=== PATIENT | female | born 2005 | race Caucasian/White ===

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

== ENCOUNTER 2024-02-07 12:38 | Emergency (ER) | payer MEDICAID, SELFPAY ==
[2024-02-07 12:42] VITALS: BP 110/71; PULSE 78; RESP 16; TEMP 37.2; O2SAT 96
[2024-02-07 13:18] LABS: Abs Immature Grans 0.01 10^3/uL (0.0-0.06); Absolute Basophil Count 0.03 10^3/uL (0.0-0.2); Absolute Eosinophil Count 0.11 10^3/uL (0.0-0.7); Absolute Lymphocyte Count 1.66 10^3/uL (1.2-3.4); Absolute Neutrophil Count 3.59 10^3/uL (1.2-6.7); Basophils % 0.5 %; Eosinophils % 1.9 %; HCT 46.1 % (36.0-46.0); Immature Grans % 0.2 %; Lymphocytes % 28.1 %; MCH 27.8 pg (27.0-33.0); MCHC 32.5 % (32.0-36.0); MCV 86 fL (80-95); Monocytes % 8.5 %; Neutrophils % 60.8 %; Platelet Count 206 10^3/uL (130-400); RBC 5.39 10^6/uL (3.93-5.22); RDW 12.2 % (11.7-14.6); RDW-SD 38.1 fL
[2024-02-07 13:45] LABS: ALT 19 U/L (14-59); AST 12 U/L (15-37); Albumin 4.4 g/dL (3.4-5.0); Alkaline Phosphatase 76 U/L (46-116); Anion Gap 8.7 mmol/L (3-11); BUN 10 mg/dL (7-18); Bilirubin, Total 1.44 mg/dL (0.2-1.0); CO2 29.3 mmol/L (21.0-32.0); CREATININE 0.8 mg/dL (0.55-1.02); Calcium 9.5 mg/dL (8.5-10.1); Chloride 105 mmol/L (98-107); Estimated GFR 108.78 (mL/min/1.73m2); Glucose 92 mg/dL (74-106); Potassium 3.7 mmol/L (3.5-5.1); Sodium 143 mmol/L (136-145); TSH (W/Ref FT4) 3.11 uIU/mL (0.52-4.13); Total Protein 8.2 g/dL (6.4-8.2)
[2024-02-07 13:50] LABS: Acetaminophen < 2 ug/mL (10-30); Salicylate < 2.8 mg/dL (<2.8)
[2024-02-07 13:51] LABS: ETHANOL BLOOD < 3.0 mg/dL (<10)
--- NOTE | 2024-02-07 13:54 | W.ED.GENAD ---
Discharge Plan Discharge Details Chief Complaint: PsychEval Clinical Impression: Feeling suicidal Primary Care Provider: Unknown,Unknown ED Provider: Angelo Dobbins Home Meds and New Rx's Prescriptions: No Action levonorgestrel-ethinyl estrad [Aviane] 0.1-20 mg-mcg tablet 1 tab PO DAILY Qty: 84 4RF Rx Instructions: take one pill every day cetirizine 10 mg tablet See Rx Instructions .ROUTE .COMPLEX Qty: 60 2RF Dose Instruction: TAKE ONE TABLET BY MOUTH AT BEDTIME NEEDED FOR SEASONAL ALLERGY SYMPTOMS Rx Instructions: TAKE ONE TABLET BY MOUTH AT BEDTIME NEEDED FOR SEASONAL ALLERGY SYMPTOMS HPI General Date/Time Provider Initiated Documentation: 02/07/24 12:43. HPI Narrative: This is a pleasant 18-year-old female with a past medical history of oppositional defiant disorder, presents today for evaluation of depression and suicidality. Patient states that for the last 4 months she has been sad, depressed, and has been crying a lot. Over the last 24 to 48 hours she has had increased motivation to end her life. She would do this by taking pills and hanging herself. She would get her pills from her mother's medicine cabinet. She denies any IV or illicit drug use. She denies any auditory or visual hallucinations. She denies any other complaints. She has not taken any medications or any extra meds. When she was young she used to cut herself superficially on her forearms. She has never been admitted for psychiatric reasons in the past. Related Data Home Medications ?Medication ?Instructions ?Recorded ?Confirmed levonorgestrel-ethinyl estradiol 1 tab PO DAILY #84 tabs 01/23/21 02/07/24 0.1 mg-20 mcg tablet (Aviane) cetirizine 10 mg tablet See Rx Instructions .Route 09/28/21 02/07/24 .COMPLEX #60 tabs Previous Rx's ?Medication ?Instructions ?Recorded levonorgestrel-ethinyl estradiol 1 tab PO DAILY #84 tabs 01/23/21 0.1 mg-20 mcg tablet (Aviane) cetirizine 10 mg tablet See Rx Instructions .Route 09/28/21 .COMPLEX #60 tabs Allergies Allergy/AdvReac Type Severity Reaction Status Date / Time No Known Allergies Allergy Verified 02/07/24 12:48 ENVIRONMENTAL Allergy Mild Other (See Uncoded 02/07/24 12:48 Comment) General Stated Complaint: PsychEval JOSÉ MIGUEL: 2 Review of Systems All systems reviewed & are unremarkable except as noted in HPI and below Exam Narrative Exam Narrative: 1.Const: Well-nourished, Well-developed, appearing stated age 2.Eyes: PERRL, no conjunctival injection, and symmetrical lids. 3.ENT: Atraumatic external nose and ears. Moist MM. Neck: Symmetric, trachea midline, No thyromegaly. 4.CVS: +S1/S2, No murmurs or gallops. Peripheral pulses 2+ and equal in all extremities. Brisk capillary refill in all extremities. 5.RESP: Unlabored respiratory effort. Clear to auscultation bilaterally. No wheezes rales or rhonchi 6.GI: Soft, Nontender/Nondistended, No hepatosplenomegaly. No guarding or rebound. 7.MSK: Normocephalic/Atraumatic, Extremities w/o deformity or ttp No cyanosis or clubbing, Normal movement of all extremities 8.Skin: Warm, Dry. No rashes or lesions. 9.Neuro: continuous improvement specialist II-XII grossly intact. Sensation grossly intact, no focal neurologic deficits. 10.Psych: (AAO) x3. Appropriate mood and affect Course Vital Signs Vital signs: Vital Signs Temperature 37.2 C 02/07/24 12:42 Pulse 78 02/07/24 12:42 Respiratory Rate 16 02/07/24 12:42 Blood Pressure 110/71 02/07/24 12:42 Pulse Oximetry 96 02/07/24 12:42 Temperature 37.2 C 02/07/24 12:42 Temperature Source Skin 02/07/24 12:42 Pulse 78 02/07/24 12:42 Respiratory Rate 16 02/07/24 12:42 Respiratory Effort Normal, Non-Labored 02/07/24 12:59 Blood Pressure 110/71 02/07/24 12:42 Blood Pressure Position Sitting 02/07/24 12:42 Pulse Oximetry 96 02/07/24 12:42 Oxygen Delivery Method Room Air 02/07/24 12:42 Oxygen Flow Rate 0 02/07/24 12:42 Pain Level 0 02/07/24 12:42 Lab/Test Results Lab/Test Results: Laboratory Tests Range/Units 02/07/24 13:10 WBC (4.4-10.8) 10^3/uL 5.90 RBC (3.93-5.22) 10^6/uL 5.39 H Hgb (11.2-15.7) g/dL 15.0 Hct (36.0-46.0) % 46.1 H MCV (80-95) fL 86 MCH (27.0-33.0) pg 27.8 MCHC (32.0-36.0) % 32.5 RDW (11.7-14.6) % 12.2 Plt Count (130-400) 10^3/uL 206 MPV (8.0-11.0) fL 10.0 Immature Gran % % 0.2 Neutrophils % % 60.8 Lymphocytes % % 28.1 Monocytes % % 8.5 Eosinophils % % 1.9 Basophils % % 0.5 Nucleated RBC % (0.0-0.3) % 0.0 Absolute Neutrophils (1.2-6.7) 10^3/uL 3.59 Absolute Lymphocytes (1.2-3.4) 10^3/uL 1.66 Absolute Monocytes (0.1-0.8) 10^3/uL 0.50 Absolute Eosinophils (0.0-0.7) 10^3/uL 0.11 Absolute Basophils (0.0-0.2) 10^3/uL 0.03 Sodium (136-145) mmol/L 143 Potassium (3.5-5.1) mmol/L 3.7 Chloride (98-107) mmol/L 105 Carbon Dioxide (21.0-32.0) mmol/L 29.3 Anion Gap (3-11) mmol/L 8.7 BUN (7-18) mg/dL 10 Creatinine (0.55-1.02) mg/dL 0.8 Est GFR (CKD-EPI 2020) (mL/min/1.73m2) 108.78 Glucose (74-106) mg/dL 92 Calcium (8.5-10.1) mg/dL 9.5 Total Bilirubin (0.2-1.0) mg/dL 1.44 H AST (15-37) U/L 12 L ALT (14-59) U/L 19 Alkaline Phosphatase (46-116) U/L 76 Total Protein (6.4-8.2) g/dL 8.2 Albumin (3.4-5.0) g/dL 4.4 TSH (0.52-4.13) uIU/mL 3.11 Salicylates (<2.8) mg/dL < 2.8 Acetaminophen (10-30) ug/mL < 2 Ethyl Alcohol (<10) mg/dL < 3.0 Medical Decision Making This is a pleasant 18-year-old female with a past medical history of oppositional defiant disorder, presents today for evaluation of depression and suicidality. Patient states that for the last 4 months she has been sad, depressed, and has been crying a lot. Over the last 24 to 48 hours she has had increased motivation to end her life. She would do this by taking pills and hanging herself. She would get her pills from her mother's medicine cabinet. She denies any IV or illicit drug use. She denies any auditory or visual hallucinations. She denies any other complaints. She has not taken any medications or any extra meds. When she was young she used to cut herself superficially on her forearms. She has never been admitted for psychiatric reasons in the past. Exam demonstrates a well-appearing but depressed female. She does have a plan. We will medically screen, and medically clear. Will have mental health come and evaluate the patient, will monitor closely and reassess. 3 PM Patient has been medically cleared, patient remained stable. Mental health is still on their way to come and assess her. Patient will be signed out to my colleague for follow-up after mental health assessment. 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) Insomnia (Acute 11/23/14) Oppositional defiant disorder (Acute 11/23/14) seeking a counselor 11/18 Routine child health exam (Acute 11/02/12) Transient tic disorder of childhood (Acute 12/01/12) Medical History (Updated 02/07/24 @ 14:58 by Angelo Dobbins DO) ADHD (attention deficit hyperactivity disorder), combined type Insomnia ODD (oppositional defiant disorder) Family History Mother Mental disorder anxiety/depression Asthma Other Substance abuse Diabetes maternal Personal history of malignant neoplasm maternal-breast, MGF- throat Mental disorder anxiety/depression, dementia Father Substance abuse Social History Smoking/Tobacco Use Status: Never Smoking risk assessment performed?: Yes Alcohol Intake: never Drug use: Never Education Level: middle school Details: - 8th grade at [employer]. Pets and animals: Yes Pets and animals: cat(s), dog(s) and other Details: Chamaleon Other: chameleon Do you feel safe in your relationship?: Yes
[2024-02-07 14:33] LABS: Bilirubin Negative (Negative); Blood Negative (Negative); Clarity Clear (Clear); Glucose Negative (Negative); Ketones Negative (Negative); Leukocyte Esterase Negative (Negative); Nitrite Negative (Negative); Specific Gravity 1.025 (1.005-1.025); Urobilinogen 0.2 mg/dL (Up to 0.2); pH 6.5 (5-8)
[2024-02-07 14:47] LABS: *AMPHETAMINES SCREEN URINE Negative (Negative); *BARBITURATES SCREEN URINE Negative (Negative); *BENZODIAZEPINES SCREEN URINE Negative (Negative); Cannabinoids THC Negative (Negative); Cocaine Screen,Urine Negative (Negative); METHADONE URINE SCREEN Negative (Negative); OPIATES URINE SCREEN Negative (Negative)
[2024-02-07 14:54] LABS: Tricyclic Antidepressants Negative (Negative)
--- NOTE | 2024-02-07 16:04 | W.EDPROG ---
Date of service: 02/07/24 Time of Service: 16:05 Medical Decision Making This patient was signed out to me. Please see previous notes for H&P and initial eval. In brief, 18yo F presenting voluntary with SI. Medically cleared, pending placement. Likely meets EE criteria should she wish to leave. No acute events this shift. Will be signed out to oncoming physician, plan remains as above. Quality:SDOH Health Related Social Needs: No Data to Display Sign Out Sign Out Data: Sign Out Comment: Depression and suicidality with multiple plans. Pending mental health assessment. Last updated by Angelo Dobbins DO at 02/07/24 15:19 Discharge Plan Discharge Details Chief Complaint: PsychEval Clinical Impression: Feeling suicidal Primary Care Provider: Unknown,Unknown ED Provider: Yulisa Gupta Home Meds and New Rx's Prescriptions: No Action levonorgestrel-ethinyl estrad [Aviane] 0.1-20 mg-mcg tablet 1 tab PO DAILY Qty: 84 4RF Rx Instructions: take one pill every day cetirizine 10 mg tablet See Rx Instructions .ROUTE .COMPLEX Qty: 60 2RF Dose Instruction: TAKE ONE TABLET BY MOUTH AT BEDTIME NEEDED FOR SEASONAL ALLERGY SYMPTOMS Rx Instructions: TAKE ONE TABLET BY MOUTH AT BEDTIME NEEDED FOR SEASONAL ALLERGY SYMPTOMS
--- NOTE | 2024-02-07 17:21 | CMSP_ITS ---
Date of service: 02/07/24 Time of Service: 17:21 Care Management Safety Plan Status Status: Voluntary Reason for Wait Reason for Wait: Inpatient Admission (awaiting inpatient psychiatric treatment at an accepting facility) Safety Plan Safety Plan: VOLUNTARY FOR INPATIENT PSYCHIATRIC STABILIZATION.? Patient is appropriate in all interactions since arriving at [facility]; Pt has demonstrated appropriate coping and communication skills and has articulated needs, concerns and is fully engaged during staff interactions. Per provider report: Medically cleared, pending placement. Likely meets EE criteria should she wish to leave. Patient has been assessed by [facility] waiter/waitress captain. CM will follow. Safety plan has been established with patient, and care team, to adhere to patient goals, identify restrictions based on behavioral status, address nutrition, and determine allowed personal belongings, tools for hygiene and personal care. Determine level of activity including ambulation, level of supervision, visitors, and determine privileges based on behaviors and level of engagement by pt. SAFETY PLAN: 1. Will remain on suicide precautions, in paper clothes 2. Will remain in Zone B under direct supervision of one-on-one staff at all times provided by [employer]; RANJANA, MANAGER RELATIONSHIP advertising dispatch clerks supervisor. 3. May have paper cups, plates, finger foods as well as a cardboard spoon with which to eat meals. 4. Follow [facility] Management of the Admitted Behavioral Health Patient policy. 5. Shower available in Zone B without restriction. 6. Personal belongings-soft items permitted at RN discretion. 7. Visitors, at RN discretion. 8. Activities: soft cart items approved per RN discretion. 9.? Bathroom available in Zone B without restriction. 10. Phone: incoming/outgoing calls limited to [facility] cordless phone at RN discretion. Due to VOLUNTARY status, if patient wishes to leave [facility], staff will contact [facility] Crisis Screener ([phone]) and Delinquency Counselor ([phone]) as soon as possible. In the event of elopement, notify [place] [employer] Police ([phone]). Patient is currently voluntarily at [facility] and seeking inpatient admission when a bed becomes available. [facility] Frontline On Air Host will continue seeking placement. Please contact the Delinquency Counselor ([phone]) and [facility] On Air Host ([phone]) for any needed changes in the Safety Plan. Safety plan has been provided to interdepartmental care team.
--- NOTE | 2024-02-07 17:21 | PDOC.CMSAFE ---
Date of service: 02/07/24 Time of Service: 17:21 Care Management Safety Plan Status Status: Voluntary Reason for Wait Reason for Wait: Inpatient Admission (awaiting inpatient psychiatric treatment at an accepting facility) Safety Plan Safety Plan: VOLUNTARY FOR INPATIENT PSYCHIATRIC STABILIZATION.? Patient is appropriate in all interactions since arriving at [facility]; Pt has demonstrated appropriate coping and communication skills and has articulated needs, concerns and is fully engaged during staff interactions. Per provider report: Medically cleared, pending placement. Likely meets EE criteria should she wish to leave. Patient has been assessed by [facility] vegetable washing machine operator. CM will follow. Safety plan has been established with patient, and care team, to adhere to patient goals, identify restrictions based on behavioral status, address nutrition, and determine allowed personal belongings, tools for hygiene and personal care. Determine level of activity including ambulation, level of supervision, visitors, and determine privileges based on behaviors and level of engagement by pt. SAFETY PLAN: 1. Will remain on suicide precautions, in paper clothes 2. Will remain in Zone B under direct supervision of one-on-one staff at all times provided by [employer]; RANJANA, PULLEY MAINTAINER fabrication machine operator. 3. May have paper cups, plates, finger foods as well as a cardboard spoon with which to eat meals. 4. Follow [facility] Management of the Admitted Behavioral Health Patient policy. 5. Shower available in Zone B without restriction. 6. Personal belongings-soft items permitted at RN discretion. 7. Visitors, at RN discretion. 8. Activities: soft cart items approved per RN discretion. 9.? Bathroom available in Zone B without restriction. 10. Phone: incoming/outgoing calls limited to [facility] cordless phone at RN discretion. Due to VOLUNTARY status, if patient wishes to leave [facility], staff will contact [facility] Crisis Screener ([phone]) and Laboratory Geneticist ([phone]) as soon as possible. In the event of elopement, notify [place] [employer] Police ([phone]). Patient is currently voluntarily at [facility] and seeking inpatient admission when a bed becomes available. [facility] Frontline Military Technician will continue seeking placement. Please contact the Laboratory Geneticist ([phone]) and [facility] Military Technician ([phone]) for any needed changes in the Safety Plan. Safety plan has been provided to interdepartmental care team.
--- NOTE | 2024-02-08 05:51 | W.EDPROG ---
Date of service: 02/08/24 Time of Service: 06:39 Medical Decision Making Patient had presented yesterday with depression and suicidal ideation. Evaluated by mental health and is currently being held voluntarily for inpatient admission. By report should be going to [facility]. Cooperative overnight with no issues. Sign Out Sign Out Data: Sign Out Comment: Depression and suicidality with multiple plans. Pending mental health assessment. Last updated by Angelo Dobbins DO at 02/07/24 15:19 Sign Out Comment: SI, medically cleared, [facility] inpatient. Voluntary at this time but would meet EE criteria should she wish to leave. Last updated by Yulisa Gupta MD at 02/07/24 23:26 Discharge Plan Discharge Details Chief Complaint: PsychEval Clinical Impression: Feeling suicidal Primary Care Provider: Unknown,Unknown ED Provider: Sergio Dean [facility] and New Rx's Prescriptions: No Action levonorgestrel-ethinyl estrad [Aviane] 0.1-20 mg-mcg tablet 1 tab PO DAILY Qty: 84 4RF Rx Instructions: take one pill every day cetirizine 10 mg tablet See Rx Instructions .ROUTE .COMPLEX Qty: 60 2RF Dose Instruction: TAKE ONE TABLET BY MOUTH AT BEDTIME NEEDED FOR SEASONAL ALLERGY SYMPTOMS Rx Instructions: TAKE ONE TABLET BY MOUTH AT BEDTIME NEEDED FOR SEASONAL ALLERGY SYMPTOMS
--- NOTE | 2024-02-08 07:33 | ED.PROG_ITS ---
Date of service: 02/08/24 Time of Service: 07:33 Medical Decision Making Care assumed from off going provider. Patient is a 18-year-old female currently pending voluntary inpatient psychiatric placement. Had some suicidal ideation with a plan. She has been placed at [facility] and is pending transportation. patient left for [place] without complication. Quality:[facility] Health Related Social Needs: No Data to Display Sign Out Sign Out Data: Sign Out Comment: Depression and suicidality with multiple plans. Pending mental health assessment. Last updated by Angelo Dobbins DO at 02/07/24 15:19 Sign Out Comment: SI, medically cleared, [facility] inpatient. Voluntary at this time but would meet EE criteria should she wish to leave. Last updated by Yulisa Gupta MD at 02/07/24 23:26 Sign Out Comment: Depression and SI on voluntary admission likely going to [facility] today. Last updated by Sergio Dean MD at 02/08/24 07:21 Discharge Plan Disposition Patient Disposition: Psychiatric Hospital/Unit Specific Psychiatric Facility: [facility]-Psychiatric Unit Condition: Stable Discharge Details Chief Complaint: PsychEval Clinical Impression: Feeling suicidal Primary Care Provider: Unknown,Unknown ED Provider: Gerry Dinero Home Meds and New Rx's Prescriptions: No Action levonorgestrel-ethinyl estrad [Aviane] 0.1-20 mg-mcg tablet 1 tab PO DAILY Qty: 84 4RF Rx Instructions: take one pill every day cetirizine 10 mg tablet See Rx Instructions .ROUTE .COMPLEX Qty: 60 2RF Dose Instruction: TAKE ONE TABLET BY MOUTH AT BEDTIME NEEDED FOR SEASONAL ALLERGY SYMPTOMS Rx Instructions: TAKE ONE TABLET BY MOUTH AT BEDTIME NEEDED FOR SEASONAL ALLERGY SYMPTOMS Discharge Data Discharge Date/Time-TO BE ENTERED AT DEPARTURE: 02/08/24 13:31
[2024-02-08 07:58] VITALS: BP 107/73; PULSE 67; RESP 18; TEMP 36; O2SAT 98
--- NOTE | 2024-02-08 08:50 | CMDISCH_ITS ---
Date of service: 02/08/24 Time of Service: 08:50 LACE Index Scoring Tool Questions: Length of Stay (in days): 1 Was the patient admitted via the E.D.?: Yes E.D. Visits: 1 Answers: Total Score: 5 Risk of Readmission: Low Risk Care Management Discharge Plan Reason for Hospitalization: Depression and SI Discharge Plan: Discharge to [place] for inpatient psychiatric treatment, transported by [facility]. Patient/Family Education Needs: Review discharge instructions, discuss ask me three. Services Needed at Discharge: Psychiatric Facility and Transportation SDOH Health Related Social Needs: No Data to Display Disposition Disposition: [place] Transport via of: [employer] (Luc[employer])
--- NOTE | 2024-02-08 09:36 | NUR.NOTE ---
not able to get into chart for the first few hours of my shift, IT notified and issue resolved.Nursing Note:
[2024-02-08 13:31] VITALS: BP 107/73; PULSE 98; RESP 16; TEMP 36; O2SAT 98
== END 2024-02-08 13:31 ==
PROVIDERS: Student in an Organized Health Care Education/Training Program; Emergency Provider Emergency Medicine
DX: R45.851 Suicidal ideations (principal); F32.A Depression, unspecified
CPT/HCPCS: 00123; 80053; 80307; 81025; 99285; 80320; 80329; 81003; 84443; 85025

== ENCOUNTER 2024-07-19 04:25 | Outpatient (CLI) | payer MEDICAID, SELFPAY ==
[2024-07-19 10:36] LABS: Panorama Kit Sent via Fed Ex
[2024-07-19 10:41] LABS: Abs Immature Grans 0.03 10^3/uL (0.0-0.06); Absolute Basophil Count 0.03 10^3/uL (0.0-0.2); Absolute Eosinophil Count 0.14 10^3/uL (0.0-0.7); Absolute Lymphocyte Count 1.43 10^3/uL (1.2-3.4); Absolute Monocyte Count 0.57 10^3/uL (0.1-0.8); Absolute Neutrophil Count 4.61 10^3/uL (1.2-6.7); Basophils % 0.4 %; Eosinophils % 2.1 %; HCT 37.4 % (36.0-46.0); HGB 12.7 g/dL (11.2-15.7); Immature Grans % 0.4 %; MCH 28.6 pg (27.0-33.0); MCV 84 fL (80-95); MPV 9.7 fL (8.0-11.0); Monocytes % 8.4 %; Neutrophils % 67.7 %; Platelet Count 189 10^3/uL (130-400); RBC 4.44 10^6/uL (3.93-5.22); RDW 12.1 % (11.7-14.6); RDW-SD 36.8 fL; WBC 6.81 10^3/uL (4.4-10.8)
[2024-07-19 18:23] LABS: Hepatitis B Surface Ag Negative (Negative)
[2024-07-19 18:50] LABS: Hepatitis C Ab w Rflx HCV PCR Negative (Negative)
[2024-07-20 09:46] LABS: Rubella IgG Ab (UVM) Positive (See Note); Varicella IgG Antibody Negative (See Note)
[2024-07-20 10:51] LABS: HIV-1/2 Ag & Ab Screen Negative (Negative)
[2024-07-21 21:08] LABS: Syphilis IgG w/Reflex Nonreactive (Nonreactive)
[2024-07-30 11:53] LABS: Result Summary NEGATIVE; Specimen WB Whole Blood
== END 2024-07-19 04:26 | disposition home or self-care (01) ==
LOC: LBO 04:25
PROVIDERS: Visit Provider Advanced Practice Midwife
DX: Z34.91 Encounter for supervision of normal pregnancy, unspecified, first trimester (principal); E84.9 Cystic fibrosis, unspecified
CPT/HCPCS: 36415; 81220; 81222; 86787; 86803; 86850; 86900; 86901; 87340; 87389; 85025; 86762; 86780

== ENCOUNTER 2024-07-19 10:38 | Outpatient (REF) | payer MEDICAID, SELFPAY ==
[2024-07-19 13:12] LABS: *AMPHETAMINES SCREEN URINE Negative (Negative); *BARBITURATES SCREEN URINE Negative (Negative); *BENZODIAZEPINES SCREEN URINE Negative (Negative); Cannabinoids THC Negative (Negative); Cocaine Screen,Urine Negative (Negative); METHADONE URINE SCREEN Negative (Negative); OPIATES URINE SCREEN Negative (Negative)
[2024-07-19 13:14] LABS: Tricyclic Antidepressants Negative (Negative)
[2024-07-20 11:42] LABS: Fentanyl Scr w/Rfx Confirm Negative ng/mL (<1)
[2024-07-20 13:33] LABS: Chlamydia Result Negative (Negative); GC Result Negative (Negative)
[2024-07-24 12:16] LABS: Buprenorphine Negative ng/mL (Cutoff: 5.0); Norbuprenorphine Negative ng/mL (Cutoff: 2.5)
== END 2024-07-19 10:39 | disposition home or self-care (01) ==
LOC: LBN 10:38
PROVIDERS: Visit Provider Advanced Practice Midwife
DX: Z34.91 Encounter for supervision of normal pregnancy, unspecified, first trimester (principal)
CPT/HCPCS: 80307; 80348; 87491; 87591; 87086

== ENCOUNTER 2024-11-08 02:40 | Outpatient (CLI) | payer MEDICAID, SELFPAY ==
[2024-11-08 16:34] LABS: HCT 37.6 % (36.0-46.0); HGB 12.3 g/dL (11.2-15.7); MCH 28.9 pg (27.0-33.0); MCHC 32.7 % (32.0-36.0); MCV 88 fL (80-95); MPV 9.4 fL (8.0-11.0); Platelet Count 142 10^3/uL (130-400); RBC 4.26 10^6/uL (3.93-5.22); RDW 12.8 % (11.7-14.6); RDW-SD 41.2 fL
[2024-11-08 16:51] LABS: Glucose,1 Hr (Glucola) 86 mg/dL (80-140)
== END 2024-11-08 02:41 | disposition home or self-care (01) ==
LOC: LBO 02:40
PROVIDERS: Visit Provider Advanced Practice Midwife
DX: Z34.92 Encounter for supervision of normal pregnancy, unspecified, second trimester (principal)
CPT/HCPCS: 36415; 82950; 85027

== ENCOUNTER 2024-11-08 15:55 | Outpatient (REF) | payer MEDICAID, SELFPAY ==
[2024-11-08 17:48] LABS: *AMPHETAMINES SCREEN URINE Negative (Negative); *BARBITURATES SCREEN URINE Negative (Negative); *BENZODIAZEPINES SCREEN URINE Negative (Negative); Cannabinoids THC Negative (Negative); Cocaine Screen,Urine Negative (Negative); METHADONE URINE SCREEN Negative (Negative); OPIATES URINE SCREEN Negative (Negative)
[2024-11-08 17:52] LABS: Tricyclic Antidepressants Negative (Negative)
[2024-11-10 12:35] LABS: Fentanyl Scr w/Rfx Confirm Negative ng/mL (<1)
[2024-11-16 11:55] LABS: Buprenorphine Negative ng/mL (Cutoff: 5.0); Norbuprenorphine Negative ng/mL (Cutoff: 2.5)
== END 2024-11-08 15:56 | disposition home or self-care (01) ==
LOC: LBN 15:55
PROVIDERS: Visit Provider Advanced Practice Midwife
DX: Z34.93 Encounter for supervision of normal pregnancy, unspecified, third trimester (principal); Z3A.28 28 weeks gestation of pregnancy
CPT/HCPCS: 80307; 80348

== ENCOUNTER 2024-11-25 21:17 | Observation (INO) | payer MEDICAID, SELFPAY ==
[2024-11-25 18:45] VITALS: BP 116/60; PULSE 76
--- NOTE | 2024-11-25 19:53 | W.PM.OBHPL1 ---
Date of service: 11/25/24 Time of Service: 19:53 Assessment and Plan Assessment and plan (1) Short cervix affecting : Status: Acute (2) Breech presentation: Status: Acute (3) contractions: Status: Acute Assessment and plan: A: 19 yo G1 @ 30+4 wks, contractions in setting of short cervix treated with vaginal progesterone nightly Onset of tightenings and cramps this afternoon @ 1400, no bleeding, no ROM POCUS reveals breech presentation 1-2/70%, posterior and firm cvx, intact membranes, parts out of the pelvis P: Consult with Dr. Benson, will speak with [facility] for advisability of transferring care Spoke with Dr. Albarado at [facility], she advises 1-2 liters IVF, celestone, labs, observation, tocolysis not indicated CBC and CRP drawn, UC&S, UDS, GBS, CT/GC sent Celestone 12 mg IM given, continuous EFM in progress (4) Marginal insertion of umbilical cord affecting management of mother: Status: Acute OB-HPI Labor/Delivery History of Present Illness Reason for Visit: NST Chief Complaint: Uterine Contractions (began feeling contractions earlier this afternoon, called to report cramps and tightenings without pain, no bleeding, no ROM, no vomiting. has been taking progesterone vaginal inserts nightly as prescribed by [facility]. Last coitus >24 hrs ago.). LUBNA Calculator Estimated Delivery Date Method Current WG Current Estimate 01/30/25 LMP (Certain) 30w 4d Other Estimates 01/31/25 Ultrasound #1 30w 3d History of Present Expected Delivery Route/Plan - CNM FOB - Harish Hancock (first child) BB- yes to circumcision Varicella non-immune, offer vaccine Bottlefeeding Specific Issues/Plan 1. Genetic testing options - cfDNA low risk male, CF- neg 08/22/24 Needs AFP at 20w visit. 2. marijuana use - initial UDS - neg.Carmelita is aware. 28 wk UDS ___ 3. Family history kidney disease, family history niece with bowel malrotation- Level 2 US at [facility]: Normal anatomy 3a. Shortened cervix noted at [facility] MFM - 09/14 -23.9 mm. Serial US at [facility] until 24 weeks. US 10/06 - Cervix length: 25.2, vaginal progesterone treatment until 37 weeks 3b. Carrier screen testing - Carrier for Alpha Thalessemia, Congenital Adrenal Hyperplasia and Hhh syndrome 4. Marginal cord insertion noted at [facility] - 32 week growth and screen for bowel obstruction, US____ Assessment: History Reviewed & Current Review of Systems Narrative: ROS completed, noncontributory other than HPI PFSH All Active Problems (Updated 11/25/24 @ 20:41 by Robyn Valdovinos) contractions (Acute) Short cervix affecting (Acute) Breech presentation (Acute) Marginal insertion of umbilical cord affecting management of mother (Acute) Maternal varicella, non-immune (Acute) (Acute) Insomnia (Acute 11/23/14) Medical History (Updated 11/25/24 @ 20:41 by Robyn Valdovinos) Family history of kidney disease 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) Oppositional defiant disorder (11/23/14) seeking a counselor 11/18 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) Attention deficit hyperactivity disorder (11/02/12) IEP in place OFF MEDS 03/23 Abnormal weight loss (11/02/12) on stimulants Irregular periods Family history of congenital anomalies daughter's child with bowel anomaly ADHD (attention deficit hyperactivity disorder), combined type Insomnia ODD (oppositional defiant disorder) Family History (Updated 07/19/24 @ 09:22 by Adeline Aldrich CNM) Mother Mental disorder anxiety/depression Asthma History of IUFD Other Substance abuse Diabetes maternal Personal history of malignant neoplasm maternal-breast, MGF- throat Mental disorder anxiety/depression, dementia Father Substance abuse Maternal Grandfather Breast cancer Maternal Grandfather Throat cancer Maternal Grandmother Cancer Gallbladder or kidney Social History Smoking/Tobacco Use Status: Never Smoking risk assessment performed?: Yes Alcohol Intake: never Drug use: Never Education Level: middle school Details: - 8th grade at [employer]. Pets and animals: Yes Pets and animals: cat(s), dog(s) and other Details: Chamaleon Other: chameleon Do you feel safe in your relationship?: Yes History History 1 Para Hx # Term Pregnancies 0 Multiple births Hx # Pregnancies Ectopic pregnancies AB induced Hx Number of Living Children AB spontaneous Meds Allergies and Home Medications Allergies Allergy/AdvReac Type Severity Reaction Status Date / Time No Known Allergies Allergy Verified 11/22/24 08:25 ENVIRONMENTAL Allergy Mild Other (See Uncoded 11/22/24 08:25 Comment) Home Medications ?Medication ?Instructions ?Recorded ?Confirmed ?Type cetirizine 10 mg tablet See Rx Instructions .Route 09/28/21 06/28/24 Rx .COMPLEX #60 tabs melatonin 5 mg capsule mg PO sleep 07/19/24 07/19/24 History vits no.126-ferrous fum 1 tab PO DAILY 07/19/24 History 28 mg iron-folic acid 800 mcg tablet (Classic ) progesterone micronized 4 % 1 appful vaginal DAILY 10/11/24 History vaginal gel Exam Physical Exam Vital signs: Pulse BP 76 116/60 11/25/24 18:45 11/25/24 18:45 Vital Signs Reviewed: Yes Narrative: afebrile, normotesive Constitutional Constitutional: no acute distress, average body habitus and cooperative Detailed Labor and Delivery Exam Dilation: 1.5 Effacement (%): 70 station: -4 (presenting parts are out of the pelvis) Cervix position: posterior Consistency: firm BLACK Score(Cervical Ripeness Score): 3 Amniotic Membrane Status: Intact Monitor Mode: External Contraction Frequency(min): q2-4 Contraction Duration(sec): 20-30 Contraction Intensity: Mild Fetus A Heart Rate Baseline: 140 Monitor Accelerations: Present Monitor Decelerations: None Variability: Moderate (6-25 BPM) Presentation: Moustapha Breech Categories: Category I HEENT Exam HEENT Exam: Normal Neck Exam Neck Exam: Normal Chest/Brest/Axilla Exam Chest Exam: Normal Breast Exam Breast Exam: Not Done Respiratory Exam Respiratory Exam: Normal Cardiovascular Exam Cardiovascular Exam: Normal Abdominal Exam Abdominal Exam: Normal (soft, nontender) Rectal Exam Rectal Exam: Normal Exam Exam: Normal Extremities Exam Extremities Exam: Normal Back/Spine/Pelvis Exam Back Exam: Normal Skin Exam Skin Exam: Normal Neurological Exam Neurological Exam: Normal Psychiatric Exam Psychiatric Exam: Normal Results Results Group Beta Strep: Done-Result Unknown Blood Type: A+ Rubella Status: Immune Varicella Immunity: Nonimmune Risk Assessment Risk for Shoulder Dystocia Historical/Initial OB: NEGATIVE FOR: Pelvic Abnormality, Pre- BMI>30, Previous Shoulder Dystocia or Previous Macrosomia Risk for Pre-Eclampsia Yes, if one or more: NEGATIVE FOR: Hx Pre-E/Gest HTN, Chronic HTN, Multiple Gestation, Pre-gestational DM, Renal Disease, Systemic Lupus or APA Syndrome Yes, if 2 or more: POSITIVE FOR: Nulliparity; NEGATIVE FOR: Age>= 35 yrs, >10yr btwn pregnancies, BMI>30, ethinicty, Mother/Sister w/ Pre-E or Previous IUGR Risk for Post- Hemorrhage Initial: NEGATIVE FOR: Multiple Gestation, Previous PPH, Known Clotting Deficiency, Grand Multiparity or Anticoagulation Risks Reviewed Risks Reviewed Upon Admission: Yes WW Pocus Exam Exam testing Date/Time of Exam: Date of exam: 11/25/2024 Time of exam: 8:46 pm LUBNA Calculator Estimated Delivery Date Method Current WG Current Estimate 01/30/25 LMP (Certain) 30w 4d Other Estimates 01/31/25 Ultrasound #1 30w 3d position Gestational age (weeks): 30 Presentation: Moustapha Breech Coding for Transabdominal exam: Complete exam
[2024-11-25 20:00] VITALS: TEMP 36.4
[2024-11-25] MEDS: Betamet Acet/Betamet Na Ph Inj. 30 MG/5 ML 12 MG IM (20:18)
[2024-11-25] MEDS: Lactated Ringers 1,000 ML 125 ML IV (20:32)
[2024-11-25 20:37] LABS: Abs Immature Grans 0.06 10^3/uL (0.0-0.06); Absolute Basophil Count 0.02 10^3/uL (0.0-0.2); Absolute Eosinophil Count 0.12 10^3/uL (0.0-0.7); Absolute Lymphocyte Count 1.82 10^3/uL (1.2-3.4); Absolute Neutrophil Count 7.92 10^3/uL (1.2-6.7); Basophils % 0.2 %; Eosinophils % 1.1 %; HCT 34.4 % (36.0-46.0); HGB 11.7 g/dL (11.2-15.7); Immature Grans % 0.6 %; Lymphocytes % 16.9 %; MCH 28.9 pg (27.0-33.0); MCV 85 fL (80-95); MPV 10.4 fL (8.0-11.0); Monocytes % 7.4 %; Neutrophils % 73.8 %; Platelet Count 158 10^3/uL (130-400); RBC 4.05 10^6/uL (3.93-5.22); RDW 12.4 % (11.7-14.6); RDW-SD 37.9 fL; WBC 10.74 10^3/uL (4.4-10.8)
[2024-11-25 21:01] LABS: C-Reactive Protein < 0.50 mg/dL (<or=0.5)
[2024-11-25 21:29] VITALS: BP 128/70; PULSE 86; TEMP 37.4
[2024-11-25 22:17] LABS: Bilirubin Negative (Negative); Blood Negative (Negative); Clarity Clear (Clear); Glucose Negative (Negative); Ketones Negative (Negative); Leukocyte Esterase Negative (Negative); Nitrite Negative (Negative); Specific Gravity 1.015 (1.005-1.025); Urobilinogen 0.2 mg/dL (Up to 0.2)
[2024-11-25] MEDS: Penicillin G POT. 5,000,000 UNITS in Normal Saline 100 ML 200 UNITS IVPB (22:30)
[2024-11-25] MEDS: MAGNESIUM SULFATE 20 GM/500 ML BAG IV_INF (22:31)
[2024-11-25 22:32] LABS: *AMPHETAMINES SCREEN URINE Negative (Negative); *BARBITURATES SCREEN URINE Negative (Negative); *BENZODIAZEPINES SCREEN URINE Negative (Negative); Cannabinoids THC Negative (Negative); Cocaine Screen,Urine Negative (Negative); METHADONE URINE SCREEN Negative (Negative); OPIATES URINE SCREEN Negative (Negative); Tricyclic Antidepressants Negative (Negative)
[2024-11-25] MEDS: Indomethacin 25 MG CAP 50 MG PO (22:46)
[2024-11-25] MEDS: Sucralfate 1 GM TAB PO (22:46)
[2024-11-25 22:53] VITALS: BP 119/56; PULSE 93; TEMP 37.2
--- NOTE | 2024-11-25 22:54 | W.PM.OBNL1 ---
Date of service: 11/25/24 Time of Service: 22:54 Pelvic Exam Dilation: 2 Effacement (%): 70 station: -4 (out of pelvis) Cervix Position: posterior Consistency: firm Contractions Monitor Mode: External Contraction Frequency(min): q4-5 Intensity: Mild Fetus A Monitor: External (US) Heart Rate Baseline: 145 Variability: Moderate (6-25 BPM) Categories: Category I Accelerations: Present Decelerations: None Amniotic Membrane Status: Intact Assessment and Plan Assessment and plan (1) contractions: Status: Acute Assessment and plan: A: persistent contractions @ 30 wks, mild and pt coping well question of slight cvx change from 1.5 cm to 2 cm (snug) P: Updated report given to Dr. Albarado at [facility] via phone Transfer accepted, orders for Indocin, Mag, Carafate, and PCN received Pt consents to transfer to [facility] tonDr. Kelley larry notified (2) Short cervix affecting : Status: Acute (3) Breech presentation: Status: Acute Subjective Interval history since last seen: contractions feel longer and bit stronger
--- NOTE | 2024-11-25 23:02 | W.PM.OBDISCH ---
Date of service: 11/25/24 Time of Service: 23:02 DS: Diagnosis Discharge Diagnosis (1) contractions: Status: Acute (2) Short cervix affecting : Status: Acute (3) Breech presentation: Status: Acute Discharge Plan Disposition Patient Disposition: Transfer-Acute Inpatient Care Specific Acute Inpt Facility: [facility] Condition: Good Discharge Details Reason For Visit: NST Admit Date/Time: 11/25/24 21:17 Admit Provider: Robyn Valdovinos Attending Provider: Robyn Valdovinos Primary Care Provider: Unknown,Unknown Home Meds and New Rx's Prescriptions: No Action Classic 28 mg iron- 800 mcg tablet 1 tab PO DAILY melatonin 5 mg capsule PO progesterone micronized 4 % gel 1 appful vaginal DAILY Patient Comments: MFM at [facility] cetirizine 10 mg tablet See Rx Instructions .ROUTE .COMPLEX Qty: 60 2RF Dose Instruction: TAKE ONE TABLET BY MOUTH AT BEDTIME NEEDED FOR SEASONAL ALLERGY SYMPTOMS Rx Instructions: TAKE ONE TABLET BY MOUTH AT BEDTIME NEEDED FOR SEASONAL ALLERGY SYMPTOMS Discharge Instructions Activity:: bedrest Equipment/Supplies:: No Equipment Needed Diet:: As Tolerated OB:DS Summary Contraception Discussed Contraception Discussed: No, Status at Discharge Functional status at discharge: independent ambulation Overall status at discharge: patient is not back to baseline Mental Status: mental status grossly normal Speech and Movement: speech and movement normal and speech clear Mood: congruent mood Affect: normal affect Quality:SDOH Health Related Social Needs: No Data to Display Exam Physical Exam Vital signs: Temp Pulse BP 98.9 F 93 H 119/56 L 11/25/24 22:53 11/25/24 22:53 11/25/24 22:53 Vital Signs Reviewed: Yes Constitutional Constitutional: no acute distress, average body habitus and cooperative HEENT Exam HEENT Exam: Normal Neck Exam Neck Exam: Normal Respiratory Exam Respiratory Exam: Normal Cardiovascular Exam Cardiovascular Exam: Normal Rectal Exam Rectal Exam: Normal Back/Spine/Pelvis Exam Back Exam: Normal Skin Exam Skin Exam: Normal Neurological Exam Neurological Exam: Normal Psychiatric Exam Psychiatric Exam: Normal PFSH All Active Problems (Updated 11/25/24 @ 20:41 by Robyn Valdovinos) contractions (Acute) Short cervix affecting (Acute) Breech presentation (Acute) Marginal insertion of umbilical cord affecting management of mother (Acute) Maternal varicella, non-immune (Acute) (Acute) Insomnia (Acute 11/23/14) Medical History (Updated 11/25/24 @ 20:41 by Robyn Valdovinos) Family history of kidney disease 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) Oppositional defiant disorder (11/23/14) seeking a counselor 11/18 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) Attention deficit hyperactivity disorder (11/02/12) IEP in place OFF MEDS 03/23 Abnormal weight loss (11/02/12) on stimulants Irregular periods Family history of congenital anomalies daughter's child with bowel anomaly ADHD (attention deficit hyperactivity disorder), combined type Insomnia ODD (oppositional defiant disorder) Family History (Updated 07/19/24 @ 09:22 by Adeline Aldrich CNM) Mother Mental disorder anxiety/depression Asthma History of IUFD Other Substance abuse Diabetes maternal Personal history of malignant neoplasm maternal-breast, MGF- throat Mental disorder anxiety/depression, dementia Father Substance abuse Maternal Grandfather Breast cancer Maternal Grandfather Throat cancer Maternal Grandmother Cancer Gallbladder or kidney Social History Smoking/Tobacco Use Status: Never Smoking risk assessment performed?: Yes Alcohol Intake: never Drug use: Never Education Level: middle school Details: - 8th grade at [employer]. Pets and animals: Yes Pets and animals: cat(s), dog(s) and other Details: Chamaleon Other: chameleon Do you feel safe in your relationship?: Yes History History 1 Para Hx # Term Pregnancies 0 Multiple births Hx # Pregnancies Ectopic pregnancies AB induced Hx Number of Living Children AB spontaneous DS: Data Vitals/I&O Vitals and I&O: Vital Signs Temperature 98.9 F 11/25/24 22:53 Pulse 93 H 11/25/24 22:53 Blood Pressure 119/56 L 11/25/24 22:53 Data Completed and Pending Labs on day of discharge: Labs from last 24 hours 11/25/24 11/25/24 11/25/24 21:30 21:30 21:30 WBC RBC Hgb Hct MCV MCH MCHC RDW Plt Count MPV Immature Gran % Neutrophils % Lymphocytes % Monocytes % Eosinophils % Basophils % Nucleated RBC % Absolute Neutrophils Absolute Lymphocytes Absolute Monocytes Absolute Eosinophils Absolute Basophils C-Reactive Protein Urine Color Urine Clarity Urine pH Ur Specific [place] Urine Protein Urine Ketones Urine Blood Urine Nitrite Urine Bilirubin Urine Urobilinogen Cancelled Ur Leukocyte Esterase Cancelled Negative Urine Glucose Cancelled Negative Urine Opiates Screen Negative Urine Methadone Screen Negative Ur Barbiturates Screen Negative Ur Tricyclics Screen Negative Ur Amphetamines Screen Negative U Benzodiazepines Scrn Negative Urine Cocaine Screen Negative Ur THC Screen Negative Chlamydia DNA Probe Chlamydia/GC DNA Source N.gonorrhoeae DNA Probe 11/25/24 11/25/24 11/25/24 21:30 21:30 21:30 WBC RBC Hgb Hct MCV MCH MCHC RDW Plt Count MPV Immature Gran % Neutrophils % Lymphocytes % Monocytes % Eosinophils % Basophils % Nucleated RBC % Absolute Neutrophils Absolute Lymphocytes Absolute Monocytes Absolute Eosinophils Absolute Basophils C-Reactive Protein Urine Color Urine Clarity Urine pH Ur Specific [place] Urine Protein Urine Ketones Urine Blood Cancelled Urine Nitrite Cancelled Negative Urine Bilirubin Cancelled Negative Urine Urobilinogen 0.2 Ur Leukocyte Esterase Urine Glucose Urine Opiates Screen Urine Methadone Screen Ur Barbiturates Screen Ur Tricyclics Screen Ur Amphetamines Screen U Benzodiazepines Scrn Urine Cocaine Screen Ur THC Screen Chlamydia DNA Probe Chlamydia/GC DNA Source N.gonorrhoeae DNA Probe 11/25/24 11/25/24 11/25/24 21:30 21:30 21:30 WBC RBC Hgb Hct MCV MCH MCHC RDW Plt Count MPV Immature Gran % Neutrophils % Lymphocytes % Monocytes % Eosinophils % Basophils % Nucleated RBC % Absolute Neutrophils Absolute Lymphocytes Absolute Monocytes Absolute Eosinophils Absolute Basophils C-Reactive Protein Urine Color Urine Clarity Urine pH Ur Specific [place] Cancelled Urine Protein Cancelled Negative Urine Ketones Cancelled Negative Urine Blood Negative Urine Nitrite Urine Bilirubin Urine Urobilinogen Ur Leukocyte Esterase Urine Glucose Urine Opiates Screen Urine Methadone Screen Ur Barbiturates Screen Ur Tricyclics Screen Ur Amphetamines Screen U Benzodiazepines Scrn Urine Cocaine Screen Ur THC Screen Chlamydia DNA Probe Chlamydia/GC DNA Source N.gonorrhoeae DNA Probe 11/25/24 11/25/24 11/25/24 21:30 21:30 21:30 WBC RBC Hgb Hct MCV MCH MCHC RDW Plt Count MPV Immature Gran % Neutrophils % Lymphocytes % Monocytes % Eosinophils % Basophils % Nucleated RBC % Absolute Neutrophils Absolute Lymphocytes Absolute Monocytes Absolute Eosinophils Absolute Basophils C-Reactive Protein Urine Color Cancelled Urine Clarity Cancelled Clear Urine pH Cancelled 7.0 Ur Specific [place] 1.015 Urine Protein Urine Ketones Urine Blood Urine Nitrite Urine Bilirubin Urine Urobilinogen Ur Leukocyte Esterase Urine Glucose Urine Opiates Screen Urine Methadone Screen Ur Barbiturates Screen Ur Tricyclics Screen Ur Amphetamines Screen U Benzodiazepines Scrn Urine Cocaine Screen Ur THC Screen Chlamydia DNA Probe Chlamydia/GC DNA Source N.gonorrhoeae DNA Probe 11/25/24 11/25/24 11/25/24 21:30 20:30 19:47 WBC 10.74 RBC 4.05 Hgb 11.7 Hct 34.4 L MCV 85 MCH 28.9 MCHC 34.0 RDW 12.4 Plt Count 158 MPV 10.4 Immature Gran % 0.6 Neutrophils % 73.8 Lymphocytes % 16.9 Monocytes % 7.4 Eosinophils % 1.1 Basophils % 0.2 Nucleated RBC % 0.0 Absolute Neutrophils 7.92 H Absolute Lymphocytes 1.82 Absolute Monocytes 0.80 Absolute Eosinophils 0.12 Absolute Basophils 0.02 C-Reactive Protein < 0.50 Urine Color Yellow Urine Clarity Urine pH Ur Specific [place] Urine Protein Urine Ketones Urine Blood Urine Nitrite Urine Bilirubin Urine Urobilinogen Ur Leukocyte Esterase Urine Glucose Urine Opiates Screen Urine Methadone Screen Ur Barbiturates Screen Ur Tricyclics Screen Ur Amphetamines Screen U Benzodiazepines Scrn Urine Cocaine Screen Ur THC Screen Chlamydia DNA Probe Chlamydia/GC DNA Source N.gonorrhoeae DNA Probe Cancelled 11/25/24 11/25/24 11/25/24 19:47 19:47 19:47 WBC RBC Hgb Hct MCV MCH MCHC RDW Plt Count MPV Immature Gran % Neutrophils % Lymphocytes % Monocytes % Eosinophils % Basophils % Nucleated RBC % Absolute Neutrophils Absolute Lymphocytes Absolute Monocytes Absolute Eosinophils Absolute Basophils C-Reactive Protein Urine Color Urine Clarity Urine pH Ur Specific [place] Urine Protein Urine Ketones Urine Blood Urine Nitrite Urine Bilirubin Urine Urobilinogen Ur Leukocyte Esterase Urine Glucose Urine Opiates Screen Urine Methadone Screen Ur Barbiturates Screen Ur Tricyclics Screen Ur Amphetamines Screen U Benzodiazepines Scrn Urine Cocaine Screen Ur THC Screen Chlamydia DNA Probe Cancelled Pending Chlamydia/GC DNA Source Cancelled Pending N.gonorrhoeae DNA Probe Pending 11/25/24 21:30 Urine - Voided Urine Culture - Pending 11/25/24 19:47 Vaginal/Rectal Group B Streptococcus Culture - Pending Preliminary micro results at discharge 11/25/24 21:30 Urine - Voided Urine Culture - Pending 11/25/24 19:47 Vaginal/Rectal Group B Streptococcus Culture - Pending
--- NOTE | 2024-11-26 00:40 | W.OBNST ---
Date of service: 11/26/24 Time of Service: 00:41 NST Evaluation Reason for NST Reasons for Nonstress Test: LABOR Gestational Age Gestational Age in Weeks and Days: 30 Weeks and 4Days Test and Monitor Explained Test/Monitor Explained: Test Explained and Monitor Explained Vital Signs Blood Pressure: 119/56 Pulse: 93 Temperature: 98.9 F Urine Results Urine Protein: Negative Urine Ketones: Negative Urine Glucose: Negative Urine Blood: Negative NST Information Date on Monitor: 11/25/24 Time on Monitor: 18:15 Date off Monitor: 11/25/24 Time off Monitor: 22:00 Total Time on Monitor: 225 NST Interventions: PO Hydration and IV Fluids Contraction Frequency: q2-4 NST Evaluation Patient States Movement: Present FHR Baseline: 135 Variability: Moderate 6-25 bpm Decelerations: None NST Results: Reactive Note Ultrasound Done: Presentation Presentation Results: breech Coding for Presentation w/NST: Completed Exam. NST Note NST Reviewed and Verified by: Robyn Valdovinos
[2024-11-26 00:42] VITALS: BP 119/56; PULSE 93; TEMP 37.2
[2024-11-26 01:20] VITALS: BP 115/61; PULSE 82
[2024-12-01 11:30] LABS: Chlamydia Result Invalid (Negative); GC Result Invalid (Negative)
== END 2024-11-25 23:31 | disposition short-term general hospital (02) ==
LOC: BCD 21:36 → OBS 21:36
PROVIDERS: Admitting Provider Advanced Practice Midwife; Visit Provider Advanced Practice Midwife
DX: O60.03 Preterm labor without delivery, third trimester; O32.1XX0 Maternal care for breech presentation, not applicable or unspecified; O26.873 Cervical shortening, third trimester; Z3A.30 30 weeks gestation of pregnancy; O99.323 Drug use complicating pregnancy, third trimester; F12.90 Cannabis use, unspecified, uncomplicated; O69.89X0 Labor and delivery complicated by other cord complications, not applicable or unspecified; Z14.8 Genetic carrier of other disease; Z28.39 Other underimmunization status; G47.00 Insomnia, unspecified; F90.9 Attention-deficit hyperactivity disorder, unspecified type; F91.3 Oppositional defiant disorder; O99.343 Other mental disorders complicating pregnancy, third trimester; O99.353 Diseases of the nervous system complicating pregnancy, third trimester; Z79.899 Other long term (current) drug therapy
CPT/HCPCS: 59025; 80307; 87491; 87591; 96360; 96361; 96365; 96368; 96372; 96375; 81003; 85025; 86140; 87081; 87086; G0378; J0702; J2540; J3475

== ENCOUNTER 2024-12-12 13:40 | Outpatient (CLI) | payer MEDICAID, SELFPAY ==
[2024-12-12 14:08] VITALS: BP 118/64; PULSE 95
--- NOTE | 2024-12-12 14:47 | W.OBNST ---
Date of service: 12/12/24 Time of Service: 14:48 NST Evaluation Reason for NST Reasons for Nonstress Test: LABOR Gestational Age Gestational Age in Weeks and Days: 33 Weeks and 0Days Test and Monitor Explained Test/Monitor Explained: Test Explained Vital Signs Blood Pressure: 118/64 Pulse: 95 Urine Results Urine Protein: Negative Urine Ketones: Negative Urine Glucose: Negative Urine Blood: Negative NST Information Date on Monitor: 12/12/24 Time on Monitor: 14:00 Date off Monitor: 12/12/24 Time off Monitor: 14:40 Total Time on Monitor: 40 NST Interventions: None Contraction Frequency: none Comments: pt states her contractions have decreased since she called an hour ago. NST Evaluation Patient States Movement: Present FHR Baseline: 145 Variability: Moderate 6-25 bpm Accelerations: 15x15 Decelerations: None NST Results: Reactive Note Ultrasound Done: N/A. NST Note Note: cvx stable at 2/70% posterior, vtx -4 intact membranes UA negative discharged and to f/up as planned and scheduled known short cvx, pt using nightly progesterone insert, pelvic rest is celestone complete from 3 weeks ago NST Reviewed and Verified by: Robyn Valdovinos
[2024-12-12 14:49] VITALS: BP 118/64; PULSE 95
== END 2024-12-12 14:51 ==
LOC: BCD 13:41 → OBS 14:06
PROVIDERS: Visit Provider Advanced Practice Midwife
DX: O47.03 False labor before 37 completed weeks of gestation, third trimester (principal); Z3A.33 33 weeks gestation of pregnancy
CPT/HCPCS: 59025

== ENCOUNTER 2024-12-17 00:15 | Outpatient (CLI) | payer MEDICAID, SELFPAY ==
[2024-11-25 18:42] VITALS: BP 116/60; PULSE 76; TEMP 36.5
--- NOTE | 2024-12-17 06:15 | DI.US_ITS ---
Exam(s) US OB KADEN WEIGHT EXAM: US OB KADEN WEIGHT CLINICAL HISTORY: H/O shortened cervix,marginal insertion of umbilical cord,O43.199. TECHNIQUE: Transabdominal obstetrical ultrasound was performed. COMPARISON: US POCUS EXAM from 12/06/2024 FINDINGS: There is a single viable intrauterine gestation with cardiac activity identified-144 bpm The fetus is presently in cephalic position . Amniotic fluid: There is a normal amount of amniotic fluid with an KADEN of 10.04cm. Placental location: The placenta is posterior fundal, grade 2,with no evidence of placenta previa. Dating parameters place this at approximately 33 weeks and 2 days gestational age, implying LUBNA of 02/02/2025. BPD measures 33 weeks and 4 days HC measures 33 weeks and 4 days AC measures 33 weeks and 3 days FL measures 32 weeks and 2 days Estimated weight is 2124 gm-4 pounds, 11 ounces. Fetus is at the 25th percentile on the Hadlock scale. Cervical length is 2.17 cm and the endocervical canal is closed. There is no funneling evident. Marginal umbilical cord insertion on the placenta noted with distance of 2.3 cm between the edge of the placenta and the cord insertion. IMPRESSION:: Viable 3rd trimester gestation, with findings as above. DATA REPOSITORY:
== END 2024-12-17 00:35 ==
LOC: DI 00:15
PROVIDERS: Visit Provider Advanced Practice Midwife
DX: O43.193 Other malformation of placenta, third trimester; Z3A.33 33 weeks gestation of pregnancy
CPT/HCPCS: 76816

== ENCOUNTER 2024-12-28 11:02 | Outpatient (REF) | payer MEDICAID, SELFPAY | END 2024-12-28 11:03 | disposition home or self-care (01) | LOC: LBN 11:02 | PROVIDERS: Visit Provider Advanced Practice Midwife | DX: Z34.93 Encounter for supervision of normal pregnancy, unspecified, third trimester (principal); Z3A.35 35 weeks gestation of pregnancy | CPT/HCPCS: 87081 ==

== ENCOUNTER 2025-01-27 11:42 | Inpatient (IN) | payer MEDICAID, SELFPAY ==
[2025-01-27] VITALS (76 sets, daily range): BP systolic 92–155; BP diastolic 49–82; PULSE 0–179; RESP 16–22; TEMP 36.4–37.6; O2SAT 94–100; BMI 24.9
[2025-01-27 12:16] LABS: HCT 35.0 % (36.0-46.0); HGB 11.6 g/dL (11.2-15.7); MCH 28.2 pg (27.0-33.0); MCHC 33.1 % (32.0-36.0); MCV 85 fL (80-95); MPV 9.9 fL (8.0-11.0); Platelet Count 167 10^3/uL (130-400); RBC 4.12 10^6/uL (3.93-5.22); RDW 13.3 % (11.7-14.6); RDW-SD 40.7 fL; WBC 9.66 10^3/uL (4.4-10.8)
--- NOTE | 2025-01-27 13:23 | W.PM.OBHPL1 ---
Date of service: 01/27/25 Time of Service: 12:30 Assessment and Plan Assessment and plan (1) Encounter for induction of labor: Status: Acute Assessment and plan: A: 19 yo G1 @ 39+4 wks, favorable cvx and pt desires elective IOL complicated by incidentally found short cvx and treated with vaginal progesterone One episode of PTL @ 27 wks managed with course of celestone and transfer to tertiary care GBS negative, no increased risks for SD or PPH Category 1 tracing, known marginal cord insertion, AGA by scan 1 month ago P: Admit to L&D, draw CBC and T&S, Plan IOL via AROM, comfort measures as desired by pt Anticipate OB-HPI Labor/Delivery History of Present Illness Reason for Visit: Elective Induction of Labor at Term Chief Complaint: Scheduled Induction of Labor Indication for Induction: Other (favorable cvx, elective ); Other (elective with favorable cvx). LUBNA Calculator Estimated Delivery Date Method Current WG Current Estimate 01/30/25 LMP (Certain) 39w 4d Other Estimates 01/31/25 Ultrasound #1 39w 3d History of Present Expected Delivery Route/Plan - CNM FOB - Harish Hancock (first child) BB- yes to circumcision Varicella non-immune, offer vaccine Plans formula feeding by informed choice GBS negative Specific Issues/Plan 1. Genetic testing options - cfDNA low risk male, CF- neg 08/22/24 Needs AFP at 20w visit. 2. marijuana use - initial UDS - neg.Carmelita is aware. 28 wk UDS -neg 3. Family history kidney disease, family history niece with bowel malrotation- Level 2 US at [facility]: Normal anatomy 3a. Shortened cervix noted at [facility] MFM - 09/14 -23.9 mm. Serial US at [facility] until 24 weeks. US 10/06 - Cervix length:25.2, vaginal progesterone treatment until 37 weeks (confirmed stopping at 01/12 visit) 3b. Carrier screen testing - Carrier for Alpha Thalessemia, Congenital Adrenal Hyperplasia and Hhh syndrome- FOB is uninsured and did not get tested. 4. Marginal cord insertion noted at [facility] - 32 week growth and screen for bowel obstruction, 4a. US 12/17- 25 %ile and KADEN 10, Per DI office worker, assessing for bowel obstruction is not something they can do at . Carmelita got more information from her sister and the bowel issues were felt to be related to prematurity so she declines follow up US. 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, nonclassical heterozygous (Acute) Alpha thalassemia silent carrier (Acute) Marginal insertion of umbilical cord affecting management of mother (Acute) Maternal varicella, non-immune (Acute) (Acute) Insomnia (Acute 11/23/14) Medical History (Updated 01/27/25 @ 13:29 by Robyn Valdovinos) Family history of intestinal obstruction contractions Breech presentation Family history of kidney disease 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) Oppositional defiant disorder (11/23/14) seeking a counselor 11/18 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) Attention deficit hyperactivity disorder (11/02/12) IEP in place OFF MEDS 03/23 Abnormal weight loss (11/02/12) on stimulants Irregular periods Family history of congenital anomalies daughter's child with bowel anomaly ADHD (attention deficit hyperactivity disorder), combined type Insomnia ODD (oppositional defiant disorder) Family History (Updated 07/19/24 @ 09:22 by Adeline Aldrcih CNM) Mother Mental disorder anxiety/depression Asthma History of IUFD Other Substance abuse Diabetes maternal Personal history of malignant neoplasm maternal-breast, MGF- throat Mental disorder anxiety/depression, dementia Father Substance abuse Maternal Grandfather Breast cancer Maternal Grandfather Throat cancer Maternal Grandmother Cancer Gallbladder or kidney Social History Smoking/Tobacco Use Status: Never Smoking risk assessment performed?: Yes Alcohol Intake: never Drug use: Never Housing: house Education Level: middle school Details: - 8th grade at [employer]. Pets and animals: Yes Pets and animals: cat(s), dog(s) and other Details: Chamaleon Other: chameleon Do you feel safe at home: Yes Do you feel safe in your relationship?: Yes History History 1 Para 0 Hx # Term Pregnancies 0 Multiple births 0 Hx # Pregnancies 0 Ectopic pregnancies 0 AB induced 0 Hx Number of Living Children 0 AB spontaneous 0 Meds Allergies and Home Medications Allergies Allergy/AdvReac Type Severity Reaction Status Date / Time No Known Allergies Allergy Verified 01/26/25 08:08 ENVIRONMENTAL Allergy Mild Other (See Uncoded 01/26/25 08:08 Comment) Home Medications ?Medication ?Instructions ?Recorded ?Confirmed ?Type cetirizine 10 mg tablet See Rx Instructions .Route 09/28/21 01/26/25 Rx .COMPLEX #60 tabs melatonin 5 mg capsule mg PO sleep 07/19/24 01/26/25 History vits no.126-ferrous fum 1 tab PO DAILY 07/19/24 01/26/25 History 28 mg iron-folic acid 800 mcg tablet (Classic ) Exam Physical Exam Vital signs: Temp Pulse Resp BP 97.6 F 96 H 18 115/66 01/27/25 12:29 01/27/25 12:29 01/27/25 12:29 01/27/25 12:29 Vital Signs Reviewed: Yes Constitutional Constitutional: no acute distress, average body habitus and cooperative Detailed Labor and Delivery Exam Dilation: 5 Effacement (%): 90 station: -2 Cervix position: mid Consistency: soft BLACK Score(Cervical Ripeness Score): 10 Amniotic Membrane Status: Intact Contraction Frequency(min): 1-2 per 10 minutes Contraction Intensity: Mild/Moderate Fetus A Heart Rate Baseline: 130 Monitor Accelerations: Present Monitor Decelerations: None Variability: Moderate (6-25 BPM) Categories: Category I HEENT Exam HEENT Exam: Normal Neck Exam Neck Exam: Normal Chest/Brest/Axilla Exam Chest Exam: Normal Breast Exam Breast Exam: Not Done Respiratory Exam Respiratory Exam: Normal Cardiovascular Exam Cardiovascular Exam: Normal Abdominal Exam Abdominal Exam: Normal (gravid, nontender) Rectal Exam Rectal Exam: Normal Exam Exam: Normal Extremities Exam Extremities Exam: Normal Back/Spine/Pelvis Exam Back Exam: Normal Pelvis Adequate: Yes Skin Exam Skin Exam: Normal Neurological Exam Neurological Exam: Normal Psychiatric Exam Psychiatric Exam: Normal Results Results Group Beta Strep: Negative Blood Type: A+ Rubella Status: Immune Varicella Immunity: Nonimmune Abnormal Lab Findings: Abnormal Labs 01/27/25 12:08 Hct 35.0 L Risk Assessment Risk for Shoulder Dystocia Historical/Initial OB: NEGATIVE FOR: Pelvic Abnormality, Pre- BMI>30, Previous Shoulder Dystocia or Previous Macrosomia 36 Weeks: NEGATIVE FOR: Current Gestational DM, EFW>4500gms or Maternal Weight Gain>40lbs Increased Risk?: No Delivery Plan @ 36wks: Risk for Pre-Eclampsia Daily Dose ASA Indicated: No Yes, if one or more: NEGATIVE FOR: Hx Pre-E/Gest HTN, Chronic HTN, Multiple Gestation, Pre-gestational DM, Renal Disease, Systemic Lupus or APA Syndrome Yes, if 2 or more: POSITIVE FOR: Nulliparity; NEGATIVE FOR: Age>= 35 yrs, >10yr btwn pregnancies, BMI>30, ethinicty, Mother/Sister w/ Pre-E or Previous IUGR Risk for Post- Hemorrhage Initial: NEGATIVE FOR: Multiple Gestation, Previous PPH, Known Clotting Deficiency, Grand Multiparity or Anticoagulation 36 Weeks: NEGATIVE FOR: Anemia, hgb<10, Low platelets(thrombocytopenia), Gestational HTN or Pre-E, Polyhydraminios or EFW>4500gms At Risk?: No Counseled re: Active Management: Yes Risks Reviewed Risks Reviewed Upon Admission: Yes
[2025-01-27] MEDS: Normal Saline Flush 10 ML SYR IVP (14:06)
--- NOTE | 2025-01-27 16:54 | W.PM.OBNL1 ---
Date of service: 01/27/25 Time of Service: 16:54 Informed Consent Informed Consent: Regional Anesthesia and Risk,Benefits,Alternatives Discussed Pelvic Exam Dilation: 7 Effacement (%): 100 station: -1 Contractions Monitor Mode: Palpation Contraction Frequency(min): q2 Intensity: Moderate/Strong Fetus A Monitor: Doppler Heart Rate Baseline: 145 FHR Rhythm: Regular Characteristics: Normal Assessment and Plan Assessment and plan (1) Encounter for induction of labor: Status: Acute Assessment and plan: A: Active labor a few hours after AROM in primipara Need for pain management Reassuring status by intermittent auscultation P: EXEC. CREATIVE DIRECTOR notified of pt request for regional anesthesia IV already in place, will add IVF and EFM Anticipate Objective Abnormal lab results 01/27/25 Range/Units 12:08 Hct 35.0 L (36.0-46.0) % Temp Pulse Resp BP 98.6 F 114 H 18 101/60 01/27/25 16:40 01/27/25 15:30 01/27/25 15:30 01/27/25 15:30 Laboratory Results WBC 9.66 10^3/uL (4.4-10.8) 01/27/25 12:08 RBC 4.12 10^6/uL (3.93-5.22) 01/27/25 12:08 Hgb 11.6 g/dL (11.2-15.7) 01/27/25 12:08 Hct 35.0 % (36.0-46.0) L 01/27/25 12:08 MCV 85 fL (80-95) 01/27/25 12:08 MCH 28.2 pg (27.0-33.0) 01/27/25 12:08 MCHC 33.1 % (32.0-36.0) 01/27/25 12:08 RDW 13.3 % (11.7-14.6) 01/27/25 12:08 Plt Count 167 10^3/uL (130-400) 01/27/25 12:08 MPV 9.9 fL (8.0-11.0) 01/27/25 12:08 ABO/Rh A Positive 01/27/25 12:08 Antibody Screen NEGATIVE 01/27/25 12:08 Vital Signs Reviewed: Yes Subjective Interval history since last seen: Contractions are very painful, nitrous has been helpful but pt requests epidural now.
[2025-01-27] MEDS: Lactated Ringers 1,000 ML 999 ML IV (17:04)
[2025-01-27] MEDS: FentaNYL/ROPIvacaine 2 mcg/ml and 0.1% 200 ML CADD Cassette EP (17:53)
--- NOTE | 2025-01-27 18:11 | ANES.PREOP_ITS ---
General Info Date of Service Date Performed: 01/27/25 Height: 5 ft 8 in Weight: 74.389 kg Body Mass Index (BMI): 24.9 Meds Allergies and Home Medications Allergies Allergy/AdvReac Type Severity Reaction Status Date / Time No Known Allergies Allergy Verified 01/27/25 14:02 ENVIRONMENTAL Allergy Mild Other (See Uncoded 01/27/25 14:02 Comment) Home Medication ?Medication ?Instructions ?Recorded cetirizine 10 mg tablet See Rx Instructions .Route 0 09/28/21 .COMPLEX #60 tabs melatonin 5 mg capsule 5 mg PO PRN sleep 07/19/24 vits no.126-ferrous fum 1 tab PO DAILY 28 mg iron-folic acid 800 mcg tablet (Classic ) Current Visit Medications: Current Medications Generic Name Dose Route Start Last Admin Trade Name Freq PRN Reason Stop Dose Admin Oxytocin/Sodium Chloride 30 units in 500 mls @ 167 mls/hr 01/27/25 17:15 Pitocin/Normal Saline IV INFUSION [facility] Protocol 167 MILLIUNITS/MIN Ringer's Solution 1,000 mls @ 125 mls/hr 01/27/25 18:15 01/27/25 17:34 IV 125 mls/hr INFUSION AD Infusion IV Miscellaneous Supplies 1 each 01/27/25 11:45 Iv Access IV DIRECTED AD Sodium Chloride 0 ml 01/27/25 11:42 01/27/25 14:06 Normal Saline Flush 10 Ml Syr IVP 10 ml PRN PRN Administration Sodium Chloride 0 ml 01/27/25 20:00 Normal Saline Flush 10 Ml Syr IVP BID AD Sodium Chloride 0 ml 01/27/25 11:42 Normal Saline 10 Ml Vial IJ DIRECTED PRN PFSH Active Problems Active Problems: Problem Status Onset Code Encounter for induction of labor Acute Z34.90 Short cervix affecting Acute O26.879 Porkxyihmhflynnbf-cjpmjiiomkwzfu-okwannijpslzpnipc syndrome Acute E72.4 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, nonclassical heterozygous Acute E25.0 Alpha thalassemia silent carrier Acute D56.3 Marginal insertion of umbilical cord affecting management of mother Acute O43.199 Maternal varicella, non-immune Acute O09.899, Z28.39 Acute Z34.90 Insomnia Acute 11/23/14 G47.00 Medical History Medical History (Updated 01/27/25 @ 13:29 by Robyn Valdovinos) Family history of intestinal obstruction contractions Breech presentation Family history of kidney disease 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) Oppositional defiant disorder (11/23/14) seeking a counselor 11/18 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) Attention deficit hyperactivity disorder (11/02/12) IEP in place OFF MEDS 03/23 Abnormal weight loss (11/02/12) on stimulants Irregular periods Family history of congenital anomalies daughter's child with bowel anomaly ADHD (attention deficit hyperactivity disorder), combined type Insomnia ODD (oppositional defiant disorder) Tobacco Smoking/Tobacco Use Status: Never Passive smoking exposure: No Alcohol Alcohol Intake: never Substance Use Substance use: Never Prental History History 2 1 Para 0 Hx # Term Pregnancies 0 Multiple births 0 Hx # Pregnancies 0 Ectopic pregnancies 0 AB induced 0 Hx Number of Living Children 0 AB spontaneous 0 Vital Signs and Lab Results Vital Signs Most Recent Vital Signs in EMR: Most Recent Vital Signs Temp Pulse Resp BP Pulse Ox 37 C 128 H 18 96/51 L 100 01/27/25 16:40 01/27/25 18:10 01/27/25 15:30 01/27/25 18:09 01/27/25 18:08 Lab Results 01/27/25 12:08 Blood Type / Crossmatch: 2 Antibody Screen NEGATIVE Today Complete Blood Count: 2 WBC, (4.4-10.8) 9.66 10^3/uL Today, 12:08 RBC, (3.93-5.22) 4.12 10^6/uL Today, 12:08 Hgb, (11.2-15.7) 11.6 g/dL Today, 12:08 Hct, (36.0-46.0) 35.0 % L Today, 12:08 Plt Count, (130-400) 167 10^3/uL Today, 12:08 Anesthesia Assessment and Plan Anesthesia History Personal History: No History of Anesthesia Complications Family History: No Family History of Anesthesia Complications Exercise Tolerance Exercise Tolerance: Metabolic Equivalents>4 Pertinent Negatives Pertinent Negatives: No Symptoms of GERD Cardiac & Pulmonary Exam Cardiac Exam: Normal S1/S2 Heart Sounds Pulmonary Exam: Clear Bilateral Breath Sounds Implantable Cardiac Device Does patient have a Pacemaker or an ICD?: No Airway Exam Known Difficult Airway: No Mallampati Class: 1 Mouth Opening: Normal (> 3cm) Thyromental Distance: Greater than 3 cm Neck Range of Motion: Full ROM Neck Circumference: Normal Teeth Condition: Normal Dentition ASA Classification ASA Score: ASA 2 Emergency Case?: No NPO Status NPO Status: NPO Clear Liquids>2 hours Status Status: Confirmed (Full-Term) Anesthesia Plan Resuscitation Status: Full Code Anesthesia Technique: Labor Epidural Airway Planned: Natural Airway Monitors Used: Standard Monitors
--- NOTE | 2025-01-27 18:14 | ANES.NEUR_ITS ---
Epidural/Spinal Catheter Date Performed: 01/27/25 Procedure Start: 17:16 Procedure Stop: 17:54 Requesting Provider: Robyn Valdovinos Procedure Location: Obstetrics Reason Performed: Labor Epidural Standard Monitors Applied: ECG, Blood Pressure, SpO2 and See EMR for corresponding vital signs Patient Position: Sitting Sedation Given (Indicate Dose Given): No Sedation given Patient Mental Status: Awake Sterility: Hand Hygiene, Surgical Cap, Surgical Mask, Sterile Gloves, Sterile Drape/Sheet, Eye Protection and Chlorhexidine Procedure Location: L2-L3 Interspace Epidural Needle: Tuohy 18 Gauge Needle Length: 3.5 Inch Needle Approach: Midline Epidural Procedure: Skin Prepped, Sterile Drape Placed, 1% Lidocaine to skin and subcutaneous tissue with 25G needle, Tuohy Needle placed, MAGDY to Saline Used, Epidural Catheter Placed, Positive Heme Noted (Positive heme with ??? increase in HR after 1cc of test dose. Epidural cath removed and moved to L2-3 interspace. 2nd cath was negative for heme or CSF.) and Negative CSF Flow Catheter Placed?: Catheter Placed Test Dose (Indicate Dose Given): 3ml 1.5% Lidocaine with 1:200K Epinephrine Given and Negative Test Dose (2nd cath at L2- 3 was negative.) Loss of Resistance Depth (cm): 6 Catheter depth at skin (cm): 12 Dressing: Sorbaview Dressing Placed, Tegaderm Applied, Mastisol Used and Dressing reinforced with Tape Epidural Provider Bolus (Indicate Dose Given): Total Ropivacaine 0.1% with Fentanyl 2mcg/ml Given from pump. (ml) Dose:: 8cc Additives (Indicate Dose Given ): None Infusion Medication: Medication Infusion Began Medication Infusion: Ropivacaine 0.1% with Fentanyl 2mcg/ml Maintenance Infusion Rate (ml/hour): 12 PCEA Bolus Dose (ml): 5 Post Procedure Pain score (0-10): 1 Block Level: T9 Paresthesia: None Ultrasound: Used to hanane site Number of Attempts (See previous attempts in note section): 2 Procedure Tolerated: No Complications (see note on positive heme) and Patient tolerated well Procedure Outcome: Successful Performed By: Ed Fink
[2025-01-27] MEDS: Lactated Ringers 1,000 ML 500 ML IV (19:10)
[2025-01-27] MEDS: Oxytocin/Normal Saline 30 UNITS/500 ML BAG 95 UNITS IV (20:55)
--- NOTE | 2025-01-27 21:10 | OBVDS_ITS ---
Date of service: 01/27/25 Time of Service: 21:11 OB Labor/ Delivery Information Baby A Delivery Delivery Method: Spontaneaous Presentation: Cephalic Cephalic Position: Vertex Vertex Position: Left Occipital Anterior Cord Description-Baby A: 3 Vessels Amniotic Fluid: Clear Quantitative Blood Loss: 100 Delivery Outcome: Liveborn Infant Transferred: Remains with Mother Note: Pt rested in right lateral positioning after epidural placed, category 2 tracing noted due to periodic variables which decreased in frequency with change to left lateral position, pt reported increased pelvic pressure and found to be fully dilated @ +3, 2nd stage huddle completed, villa removed from bladder, strong maternal efforts resulted in of vigorous male infant over intact perineum, shoulders delivered with ease and placed in mother's arms immediately. IV bolus infusion begun, cord clamped and cut by FOB at 5 minutes of age, cord blood collected, Dumont placenta intact with 3VC, minimal lochia and fundus firm, vagina and vulva inspected and are without laceration, strong family bonding observed, apgars 9/9, weight 3175 gms. Providers Nurse Optical Coating Technician: Robyn Valdovinos Nurse: Elo Valdovinos Nurse: Anay Smith Labor/Delivery Information Number of Babies in Womb: 1 Group Beta Strep: Negative Rubella Status: Immune Blood Type: A+ Varicella Immunity: Nonimmune Maternal Complications: None Shoulder Dystocia: No Stages of Labor Onset of Labor Date: 01/27/25 Onset of Labor Time: 15:00 Complete Dilatation Date: 01/27/25 Complete Dilatation Time: 20:15 Labor - Stage 1 Duration: 5 hours and 15 minutes ROM Baby A: 01/27/25 ROM Baby A: 13:04 ROM Total Time- Baby A: [id number] Delivery Date-Baby A: 01/27/25 Infant Delivery Time-Baby A: 20:51 Labor Stage 2 Duration: 36 minutes Placenta Delivery Date-Baby A: 01/27/25 Placenta Delivery Time-Baby A: 20:59 Labor-Stage 3 Duration: 8 minutes Total Length of Labor-Baby A: 5 hours and 51 minutes Placenta Cultured: No Placenta Status: Delivered Baby A Gestational Status: Term (39-41.6 wks) Gestational Age in Weeks/Days: 39 Weeks and 4 Days weight: 6 lb 15.995 oz Weight Comment: 3175 gms Score-1 Minute Interval(Baby A) Heart Rate-1 minute: 100 BPM or Greater Respiratory Effort- 1 minute: Spontaneous/Strong Cry Muscle Tone-1 minute: Active Movement Reflex Response-1 minute: Prompt Response Color-1 minute: Bluish Hands or Feet Total Score-1 minute: 9 Score-5 Minute Interval(Baby A) Heart Rate- 5 minute: 100 BPM or Greater Respiratory Effort-5 minute: Spontaneous/Strong Cry Muscle Tone-5 minute: Active Movement Reflex Response-5 minute: Prompt Response Color-5 minute: Bluish Hands or Feet Total Score- 5 minute: 9
[2025-01-27] MEDS: Dibucaine 1% 28 GM TUBE TP (21:39)
[2025-01-27] MEDS: Hamamelis Leaf/Glycerin 100 EACH BOX PR (21:40)
[2025-01-28] VITALS: BP 116/73; PULSE 101; TEMP 37.2
[2025-01-28 01:00] VITALS: BP 106/76; PULSE 99
[2025-01-28] MEDS: Ibuprofen 600 MG TAB PO ×2 (06:07→19:54)
[2025-01-28 08:00] VITALS: BP 100/77; PULSE 95; RESP 18; TEMP 36.8
--- NOTE | 2025-01-28 08:54 | W.PM.OBPNV1 ---
Date of service: 01/28/25 Time of Service: 08:54 Assessment and Plan Assessment and plan (1) Term delivered: Status: Acute Assessment and plan: A: PPD#1, nml recovery Formula feeding as planned Satisfied with experience P: Plan for discharge after 24 hrs, either tonight or tomorrow morning Written instructions reviewed and given to pt F/up at 2 & 6 wks Interested in Paragard IUD insertion at 8 wks Exam Physical Exam Vital signs: Temp Pulse Resp BP Pulse Ox 98.9 F 99 H 18 106/76 95 01/28/25 00:00 01/28/25 01:00 01/27/25 22:00 01/28/25 01:00 01/27/25 22:54 Vital Signs Reviewed: Yes Constitutional Constitutional: no acute distress, average body habitus and cooperative HEENT Exam HEENT Exam: Normal Neck Exam Neck Exam: Normal Breast Exam Bilateral: Breast Exam: Normal and Soft Nipple Exam: Normal and Uninjured Respiratory Exam Respiratory Exam: Normal Cardiovascular Exam Cardiovascular Exam: Normal Abdominal Exam Abdomen: Other (soft, nontender) Fundal Exam Fundus: Below Umbilicus and Firm Rectal Exam Rectal Exam: Normal Exam Perineum: Intact Extremities Exam Extremity Exam: Normal, Full ROM and Warm to Touch Back/Spine/Pelvis Exam Back Exam: Normal Skin Exam Skin Exam: Normal Neurological Exam Neurological Exam: Normal Psychiatric Exam Psychiatric Exam: Normal
[2025-01-28 14:39] VITALS: BP 100/58; PULSE 92; RESP 18; TEMP 36.9
[2025-01-28] MEDS: Docusate Sodium 100 MG CAP PO (19:54)
[2025-01-28 20:00] VITALS: BP 115/75; PULSE 81; RESP 16; TEMP 36.7; O2SAT 95
--- NOTE | 2025-01-28 23:05 | DSE_ITS ---
Date of service: 01/28/25 Time of Service: 23:06 DS: Diagnosis Discharge Diagnosis (1) Term delivered: Status: Acute Asessment and Plan: Stable Day #1. Carmelita desires early discharge to home. Plan: - Discharge to home with - Reviewed warnings and education. Handout provided. - Follow-up in clinic in 2 and 6 weeks - Recommended immunization with varicella, which she declines - Contraception discussed, she plans an IUD - PMADs discussed, recommended prioritizing sleep as primary prevention for PMADs. Also discussed reaching out early to the CNMs should she feel that PMADs are developing. She has worked with a therapist in the past. We reviewed [employer] resources. (2) Single live : Status: Acute (3) Maternal varicella, non-immune: Status: Acute Discharge Plan Disposition Patient Disposition: Home Condition: Good Discharge Details Reason For Visit: Elective Induction of Labor at Term Admit Date/Time: 01/27/25 11:42 Admit Provider: Robyn Valdovinos Attending Provider: Robyn Valdovinos Primary Care Provider: Unknown,Unknown Hospital Course Hospital Course: Admitted for IOL elective with favorable cvx at 39 wks, several hours after AROM under epidural anesthesia, nml recovery. Home Meds and New Rx's Prescriptions: No Action Classic 28 mg iron- 800 mcg tablet 1 tab PO DAILY melatonin 5 mg capsule 5 mg PO PRN cetirizine 10 mg tablet See Rx Instructions .ROUTE .COMPLEX Qty: 60 2RF Dose Instruction: TAKE ONE TABLET BY MOUTH AT BEDTIME NEEDED FOR SEASONAL ALLERGY SYMPTOMS Rx Instructions: TAKE ONE TABLET BY MOUTH AT BEDTIME NEEDED FOR SEASONAL ALLERGY SYMPTOMS Discharge Instructions Additional Instructions: Please keep your 2 and 6 weeks appointments with the midwives, call for any and all concerns. Stand Alone Forms: BC Post Vaginal Deliver Activity:: Activity as Tolerated Equipment/Supplies:: No Equipment Needed Diet:: Normal Diet OB:DS Summary Summary Vaginal Delivery Method: Spontaneaous Episiotomy Description: None Laceration Description: None Laceration Extension: N/A Contraception Discussed Contraception Discussed: Yes, [place] Infant Gender-Baby A: Male weight: 6 lb 15.995 oz Status at Discharge Functional status at discharge: independent ambulation Overall status at discharge: patient is progressing back to baseline Mental Status: mental status grossly normal Speech and Movement: speech and movement normal Mood: congruent mood Affect: normal affect Exam Physical Exam Vital signs: Temp Pulse Resp BP Pulse Ox 98.1 F 81 16 115/75 95 01/28/25 20:00 01/28/25 20:00 01/28/25 20:00 01/28/25 20:00 01/28/25 20:00 Narrative: General: well-appearing, NAD Neck: supple, NT Respiratory: CTAB, unlabored CV: NST without murmur Breast: deferred, as she is without complaints and is formula feeding GI: soft, NT : fundus firm at 2 FB below umbilicus, Perineum deferred as intact MSK: no homans, no clonus, no edema Integument: warm, dry, pink Psychiatric: cooperative, appropriate mood and affect PFSH All Active Problems Single live (Acute) Term delivered (Acute) Piqmnlmdstxsxolvx-dtvpujsyfjjefr-iblvipcdglfspdvgz syndrome (Acute) 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, nonclassical heterozygous (Acute) Alpha thalassemia silent carrier (Acute) Maternal varicella, non-immune (Acute) Insomnia (Acute 11/23/14) Medical History Marginal insertion of umbilical cord affecting management of mother Short cervix affecting Encounter for induction of labor Family history of intestinal obstruction contractions Breech presentation Family history of kidney disease 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) Oppositional defiant disorder (11/23/14) seeking a counselor 11/18 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) Attention deficit hyperactivity disorder (11/02/12) IEP in place OFF MEDS 03/23 Abnormal weight loss (11/02/12) on stimulants Irregular periods Family history of congenital anomalies daughter's child with bowel anomaly ADHD (attention deficit hyperactivity disorder), combined type Insomnia ODD (oppositional defiant disorder) Family History Mother Mental disorder anxiety/depression Asthma History of IUFD Other Substance abuse Diabetes maternal Personal history of malignant neoplasm maternal-breast, MGF- throat Mental disorder anxiety/depression, dementia Father Substance abuse Maternal Grandfather Breast cancer Maternal Grandfather Throat cancer Maternal Grandmother Cancer Gallbladder or kidney Social History Smoking/Tobacco Use Status: Never Smoking risk assessment performed?: Yes Alcohol Intake: never Drug use: Never Housing: house Education Level: middle school Details: - 8th grade at [employer]. Pets and animals: Yes Pets and animals: cat(s), dog(s) and other Details: Chamaleon Other: chameleon Do you feel safe at home: Yes Do you feel safe in your relationship?: Yes History History 1 Para 0 Hx # Term Pregnancies 0 Multiple births 0 Hx # Pregnancies 0 Ectopic pregnancies 0 AB induced 0 Hx Number of Living Children 0 AB spontaneous 0 DS: Data Vitals/I&O Vitals and I&O: Vital Signs Temperature 98.1 F 01/28/25 20:00 Temperature Source Forehead 01/28/25 20:00 Pulse 81 01/28/25 20:00 Pulse Rhythm Regular 01/28/25 20:00 Respiratory Rate 16 01/28/25 20:00 Respiratory Depth Normal 01/28/25 20:00 Blood Pressure 115/75 01/28/25 20:00 Blood Pressure Mean 88 01/28/25 20:00 Pulse Oximetry 95 01/28/25 20:00 Oxygen Delivery Method Room Air 01/27/25 12:29 Oxygen Flow Rate 0 01/27/25 12:29 Pain Level 3 01/28/25 20:00 Comment denies pain at this time 01/28/25 14:39 Intake & Output 01/27/25 01/28/25 01/28/25 23:59 11:59 23:59 Intake Total 1425.5 / 1425.5 1851.0 / 1851.0 Output Total 1250 / 1250 2049 Balance 175.5 / 175.5 -199.0 / -199.0 Weight 164 lb Intake: IV 1425.5 / 1425.5 1851.0 / 1851.0 Output: Urine 1100 / 1100 2049 Blood 150 / 150 Other: Urine Color Yellow Urine Appearance Clear
== END 2025-01-28 23:47 | disposition home or self-care (01) | DRG 807 ==
PROVIDERS: Admitting Provider Advanced Practice Midwife; Visit Provider Advanced Practice Midwife
DX: O26.873 Cervical shortening, third trimester (principal); Z37.0 Single live birth; Z3A.39 39 weeks gestation of pregnancy; Z28.39 Other underimmunization status; Z14.8 Genetic carrier of other disease; O69.89X0 Labor and delivery complicated by other cord complications, not applicable or unspecified; O99.344 Other mental disorders complicating childbirth; F90.9 Attention-deficit hyperactivity disorder, unspecified type
CPT/HCPCS: 36415; 85027; 86850; 86900; 86901

== ENCOUNTER 2025-03-06 11:06 | Emergency (ER) | payer MEDICAID, SELFPAY ==
[2025-03-06 11:09] VITALS: BP 128/83; PULSE 81; RESP 18; TEMP 36.4; O2SAT 98
[2025-03-06 11:23] VITALS: BP 128/83; PULSE 81; RESP 18; TEMP 36.4; O2SAT 98
[2025-03-06 11:34] VITALS: RESP 16
--- NOTE | 2025-03-06 11:47 | ED.GENADUL_ITS ---
Discharge Plan Disposition Patient Disposition: Home Discharge Details Clinical Impression: Back pain, thoracic Primary Care Provider: Unknown,Unknown ED Provider: Juanito Pelaez Home Meds and New Rx's Prescriptions: Continued Classic 28 mg iron- 800 mcg tablet 1 tab PO DAILY melatonin 5 mg capsule 5 mg PO PRN cetirizine 10 mg tablet See Rx Instructions .ROUTE .COMPLEX Qty: 60 2RF Dose Instruction: TAKE ONE TABLET BY MOUTH AT BEDTIME NEEDED FOR SEASONAL ALLERGY SYMPTOMS Rx Instructions: TAKE ONE TABLET BY MOUTH AT BEDTIME NEEDED FOR SEASONAL ALLERGY SYMPTOMS Discharge Instructions Additional Instructions: You are seen in the emergency department for your back pain. As we discussed if you develop any weakness if you lose control of your bowels or bladder or if you develop a rash chest pain shortness of breath or have any other concerns please return to the emergency department. Otherwise please follow-up with your technician automated equipment later this week as previously scheduled. For your pain please take medications as follows: 1. Take acetaminophen (Tylenol), 1,000 mg (two 500 mg tabs) every 6 hours [2. Take ibuprofen (Advil), 400 mg every 6 hours.] HPI General Date/Time Provider Initiated Documentation: 03/06/25 11:18 . HPI Narrative: MDM This is an overall very well-appearing afebrile and not tachycardic 19-year-old female approximately 5 weeks with upper thoracic back pain and reassuring history and physical for which patient will receive empiric trial of discharge with expectant outpatient management. I considered spinal epidural hematoma given neural axial anesthesia performed with spinal catheter approximately 5 weeks ago. This was performed in the patient's lumbar spine. She has no lumbar spinal pain. She did not loss any bowel or bladder control to suggest increased risk for cauda equina syndrome. She has not been thrombocytopenic in the past so my suspicion for spinal epidural hematoma is low. She has had no fevers to suggest increased risk for spinal epidural abscess. No history of malignancy so my suspicion for pathological fracture is low. She denies IV drug use so she is low risk for spinal epidural abscess. She has no rash to her back to suggest zoster. No pain out of proportion to suggest necrotizing soft tissue infection. No chest pain to suggest ACS I did not obtain ECG. No shortness of breath to suggest PE so I did not send a D- dimer. Soft nontender abdomen so not suspicious for abdominal pain. Specifically no right lower quadrant tenderness to suggest appendicitis. No nuchal rigidity nor fevers to suggest meningitis. No fevers make my suspicion for spinal epidural abscess low. I considered arachnoiditis but felt that this was less likely in the absence of headache. No neurological deficits to suggest acute CVA. No tonic-clonic activity to suggest seizure. In the absence of chest pain my suspicion for aortic dissection is low. She had only been taking ibuprofen. It may be possible that due to holding her she has developed thoracic pain. We discussed that she should return to the ED if she develops any weakness in her extremities, if she developed any numbness or tingling between her legs or if she did not urinate at least once every 8 hours or develop chest pain or shortness of breath that she should return to the ED. I went over return indications with patient and her fianc?. We discussed appropriate dosing for acetaminophen and ibuprofen. She understood her return indications and was discharged with empiric trial of expectant outpatient management. HPI This is a female with a history of back pain presenting with acute exacerbation of back pain. She began experiencing back pain on 03/04/2025 while lying in bed, without any preceding fall or injury. The pain is located between her shoulder blades and radiates to her rib cage. She reports no recent fevers, weakness, tingling in her arms or legs, chest pain, or difficulty breathing. She also reports no burning sensation during urination, loss of consciousness, rashes on her back, or loss of bowel or bladder control. She is not an IV drug user and is not on blood thinners. She did receive an epidural during her . She has been using ibuprofen for pain relief, starting with a dose of 200 mg and increasing to 600 mg every few hours as needed. However, these medications have not been effective in alleviating her pain. She has not tried Tylenol, patches, or numbing medicine. She has been experiencing similar back pain since giving 5 weeks ago, but it typically subsides during sleep. However, this time the pain has persisted throughout the day and night. The current episode of pain is more intense than previous ones, requiring her to take higher doses of medication more frequently. She reports that showering improves her symptoms. The patient reports experiencing nausea and vomiting since 03/05/2025. She has not eaten today and continues to feel nauseous. Exam General: Well-appearing in no acute distress speaking in complete sentences. Head: Normocephalic, atraumatic. Eye: Extraocular eye movements intact. No conjunctival injection. No scleral icterus. Ear, nose, mouth, throat: Grossly normal inspection. Normal voice, handling secretions normally. Neck: Trachea midline. No nuchal rigidity. No midline cervical spinal tenderness. Back: Mild midline thoracic spinal tenderness. No step-offs. No deformities. No midline lumbar spinal tenderness. Cardiovascular: Well-perfused distal extremities. Regular rate and rhythm. Respiratory: Nonlabored respiration.Clear lungs bilaterally. Gastrointestinal: Nondistended abdomen. Soft. Nontender. Musculoskeletal: No edema. Moving all 4 extremities spontaneously. Skin: Normal for age and race, grossly normal temperature and turgor. No acute rash. Neurologic: Alert and appropriate, no apparent acute deficits. 5 out of 5 strength bilateral upper and lower extremities. Sensation intact bilateral upper and lower extremities. Psychiatric: Mood and manner are appropriate. Grooming and personal hygiene are appropriate. Related Data Home Medications ?Medication ?Instructions ?Recorded ?Confirmed cetirizine 10 mg tablet See Rx Instructions .Route 0 09/28/21 03/06/25 .COMPLEX #60 tabs melatonin 5 mg capsule 5 mg PO PRN sleep 07/19/24 0 03/06/25 vits no.126-ferrous fum 1 tab PO DAILY 03/06/25 28 mg iron-folic acid 800 mcg tablet (Classic ) Previous Rx's ?Medication ?Instructions ?Recorded cetirizine 10 mg tablet See Rx Instructions .Route 0 09/28/21 .COMPLEX #60 tabs Allergies Allergy/AdvReac Type Severity Reaction Status Date / Time No Known Allergies Allergy Verified 03/06/25 11:13 ENVIRONMENTAL Allergy Mild Other (See Uncoded 03/06/25 11:13 Comment) General Stated Complaint: [facility] JOSÉ MIGUEL: 3 Course Vital Signs Vital signs: Vital Signs Temperature 36.4 C L 03/06/25 11:09 Pulse 81 03/06/25 11:09 Respiratory Rate 18 03/06/25 11:09 Blood Pressure 128/83 03/06/25 11:09 Pulse Oximetry 98 03/06/25 11:09 Temperature 36.4 C L 03/06/25 11:23 Pulse 81 03/06/25 11:23 Respiratory Rate 16 03/06/25 11:34 Respiratory Effort Normal, Non-Labored 03/06/25 11:34 Respiratory Depth Normal 03/06/25 11:34 Respiratory Pattern Normal 03/06/25 11:34 Blood Pressure 128/83 03/06/25 11:23 Pulse Oximetry 98 03/06/25 11:23 Oxygen Delivery Method Room Air 03/06/25 11:23 Oxygen Flow Rate 0 03/06/25 11:23 Pain Level 5 03/06/25 11:23 PFSH All Active Problems (Updated 03/06/25 @ 11:48 by Juanito Pelaez MD) Back pain, thoracic (Acute) Single live (Acute) Term delivered (Acute) Ehvjqwtwyzmhgdfpi-znbcbauektltio-snulikxbzrnaomcps syndrome (Acute) 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, nonclassical heterozygous (Acute) Alpha thalassemia silent carrier (Acute) Maternal varicella, non-immune (Acute) Insomnia (Acute 11/23/14) Medical History Marginal insertion of umbilical cord affecting management of mother Short cervix affecting Encounter for induction of labor Family history of intestinal obstruction contractions Breech presentation Family history of kidney disease 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) Oppositional defiant disorder (11/23/14) seeking a counselor 11/18 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) Attention deficit hyperactivity disorder (11/02/12) IEP in place OFF MEDS 03/23 Abnormal weight loss (11/02/12) on stimulants Irregular periods Family history of congenital anomalies daughter's child with bowel anomaly ADHD (attention deficit hyperactivity disorder), combined type Insomnia ODD (oppositional defiant disorder) Family History Mother Mental disorder anxiety/depression Asthma History of IUFD Other Substance abuse Diabetes maternal Personal history of malignant neoplasm maternal-breast, MGF- throat Mental disorder anxiety/depression, dementia Father Substance abuse Maternal Grandfather Breast cancer Maternal Grandfather Throat cancer Maternal Grandmother Cancer Gallbladder or kidney Social History Smoking/Tobacco Use Status: Never Smoking risk assessment performed?: Yes Alcohol Intake: never Drug use: Never Housing: house Education Level: middle school Details: - 8th grade at [employer]. Pets and animals: Yes Pets and animals: cat(s), dog(s) and other Details: Arianealekasey Other: chameleon Do you feel safe at home: Yes Do you feel safe in your relationship?: Yes History History 1 Para 0 Hx # Term Pregnancies 0 Multiple births 0 Hx # Pregnancies 0 Ectopic pregnancies 0 AB induced 0 Hx Number of Living Children 0 AB spontaneous 0
[2025-03-06 11:55] VITALS: BP 107/43; PULSE 83; RESP 18; O2SAT 98
== END 2025-03-06 11:55 | disposition home or self-care (01) ==
PROVIDERS: Emergency Provider Emergency Medicine
DX: M54.6 Pain in thoracic spine (principal)
CPT/HCPCS: 99282; 99283